=== PATIENT | female | born 1990 | race Caucasian/White ===

== ENCOUNTER → 2016-06-22 | Emergency (ER) | payer OTHER ==
[2016-06-22 19:30] VITALS: BP 125/62; PULSE 84; TEMP 97.9; BMI 26.6
--- NOTE | 2016-06-22 19:32 | PDOC ---
*Physical Exam - Physical Exam Comments: 06/22/16 19:28 26 yo female c/o left sided cp earlier today while having lunch but has subsided after ~1 hour. Pt was exacerbated with deep inspiration and alleviated at rest. Pt says she's been PAIN FREE x6 hours. Pt denies any sob, n/v, f/c, abd pain. ekg ordered <Sivakumar Carter - Last Filed: 06/22/16 19:28> - Vital Signs Last Vital Signs Temp Pulse Resp BP Pulse Ox 97.9 F 84 18 125/62 100 06/22/16 19:28 06/22/16 19:28 06/22/16 19:28 06/22/16 19:28 06/22/16 19:28 <Karina Weeks - Last Filed: 06/23/16 20:36> Medical Decision Making - Medical Decision Making 06/22/16 20:36 Patient did not want to stay for evaluation. She requests her EKG "so I can take to my primary care provider, you guys have other things to do." EKG results: NSR Patient eloped. <Karina Weeks - Last Filed: 06/23/16 20:36> *DC/Admit/Observation/Transfer <Sivakumar Carter - Last Filed: 06/22/16 19:28> <Karina Weeks - Last Filed: 06/23/16 20:36> Diagnosis at time of Disposition: Chest pain Qualifiers: Chest pain type: unspecified Qualified Code(s): R07.9 - Chest pain, unspecified - Discharge Dispostion Disposition: ELOPED Condition at time of disposition: Unchanged/Unknown - Referrals Referrals: Adelaide Dickerson MD [Primary Care Provider] -
--- NOTE | 2016-06-23 12:33 | EKG ---
Test Reason : Blood Pressure : / mmHG Vent. Rate : 081 BPM Atrial Rate : 081 BPM P-R Int : 166 ms QRS Dur : 086 ms QT Int : 384 ms P-R-T Axes : 067 072 048 degrees QTc Int : 446 ms NORMAL SINUS RHYTHM NORMAL ECG NO PREVIOUS ECGS AVAILABLE Confirmed by JORGE BARAHONA, KATHIE ([id number]) on 06/23/2016 12:33:32 PM Referred By: Confirmed By:KATHIE PATEL MD
== END | disposition left against medical advice (07) ==
LOC: JER 18:54
DX: Z53.21 Procedure and treatment not carried out due to patient leaving prior to being seen by health care provider (principal)
CPT/HCPCS: 93005; 93010; 99281-25

== ENCOUNTER 2020-08-19 17:41 | Emergency (ER) | payer OTHER ==
[2020-08-20 08:06] LABS: SARS-CoV-2 NAA Not Detected (Not Detected)
== END 2020-08-19 19:34 | disposition home or self-care (01) ==
LOC: JVIRT 17:41
DX: Z20.822 Contact with and (suspected) exposure to COVID-19 (principal)
CPT/HCPCS: C9803; G2251-GT; Q3014-GT; U0003; U0005